=== PATIENT | male | born 1965 | race Caucasian/White ===

== ENCOUNTER 2023-10-03 08:54 | Outpatient (REF) | payer BC, SELFPAY ==
[2023-10-03 13:38] LABS: Appearance Urine Clear; Color Urine Yellow; Glucose Urine UA Negative (Negative); Leukocyte Esterase Urine Negative (Negative); Nitrite Urine Negative (Negative); PH 7.5 (5.0-9.0); Specific Gravity - Urine 1.015 (1.005-1.025); Urine Blood Negative (Negative); Urine Ketones Negative (Negative); Urine Protein Negative (Neg-Trace)
[2023-10-03 13:42] LABS: Bacteria Urine None Seen (None Seen); Hyaline Casts Urine 0-2 /LPF (0-2); RBC Urine 0-2 /HPF (0-2); Squamous Epithelial Cell Urine 0-2 /HPF (0-2); WBC Urine 0-5 /HPF (0-5)
[2023-10-03 14:08] LABS: Alanine Aminotransferase 35 U/L (0-40); Albumin Level 3.5 g/dL (3.5-5.0); Alkaline Phosphatase 126 U/L (39-117); Anion Gap 13 (12-20); Aspartate Amino Transferase 67 U/L (5-37); Blood Urea Nitrogen 13 mg/dL (9-16); Calcium 9.2 mg/dL (8.4-10.2); Carbon Dioxide 22 mmol/L (22-29); Chloride 102 mmol/L (96-108); Estimated Glomerular Filt Rate > 60; Glucose Random 135 mg/dL (60-115); Potassium 3.7 mmol/L (3.3-5.1); Sodium 133 mmol/L (135-145); Total Protein 8.2 g/dL (6.5-8.0)
[2023-10-03 14:24] LABS: Bilirubin Total 1.9 mg/dL (0.0-1.0)
== END 2023-10-03 08:55 | disposition home or self-care (01) ==
LOC: HO.MANLDS 08:54
PROVIDERS: Visit Provider Internal Medicine
DX: R60.0 Localized edema (principal)
CPT/HCPCS: 36415; 80053; 81001